=== PATIENT | female | born 1990 | race Caucasian/White ===

== ENCOUNTER 2021-11-02 14:19 | Emergency (ER) | payer SELFPAY ==
[2021-11-02 14:44] VITALS: BMI 23.3
[2021-11-02 15:51] VITALS: BP 98/48; PULSE 70; TEMP 98.3
== END 2021-11-02 19:51 | disposition home or self-care (01) ==
LOC: JER 14:19
DX: T78.00XA Anaphylactic reaction due to unspecified food, initial encounter (principal)
CPT/HCPCS: 84703; 99283-25